=== PATIENT | female | born 1975 | race African-American/Black ===

== ENCOUNTER 2017-09-16 13:58 | Emergency (ER) | payer OTHER ==
[2017-09-16] MEDS ORDERED: ACETAMINOPHEN 325 MG TABLET (FP) PO ONE (14:37)
[2017-09-16 14:38] VITALS: BMI 28.7
--- NOTE | 2017-09-16 14:40 | PDOC ---
Rapid Medical Evaluation Chief Complaint: Cold Symptoms Time Seen by Provider: 09/16/17 14:37 Medical Evaluation: Allergies Allergy/AdvReac Type Severity Reaction Status Date / Time No Known Allergies Allergy Verified 09/16/17 14:35 Vital Signs Temp Pulse Resp BP Pulse Ox 102 F H 124 H 20 118/75 99 09/16/17 14:34 09/16/17 14:34 09/16/17 14:34 09/16/17 14:34 09/16/17 14:34 09/16/17 14:38 I have performed a brief in-person evaluation of this patient. The patient presents with a chief complaint of: Body aches w/ WYNNE, cough, fever and ? sob since yesterday. Tested flu A + at center today but as was tachy to 133 and febrile to 100, was sent to ED as per pt. Was not given meds Pertinent physical exam findings:Febrile and tachy I have ordered the following:tylenol and CXR The patient will proceed to the ED for further evaluation. Discharge Disposition - Referrals Referrals: Tabitha Sterling [Primary Care Provider] - - Patient Instructions - Post Discharge Activity
--- NOTE | 2017-09-16 16:13 | PDOC ---
History of Present Illness - General Chief Complaint: Cold Symptoms Stated Complaint: FLU Symptoms Time Seen by Provider: 09/16/17 14:37 History Source: Patient Exam Limitations: No Limitations - History of Present Illness Initial Comments: 09/16/17 16:10 42-year-old female presents the emergency room complaints of cough, congestion, headache, sore throat earache, and myalgia since yesterday. Patient states went to an urgent care clinic today who tested her for influenza and was positive for flu a since patient was febrile and tachycardic with history of diabetes referred her to the ER for further evaluation of possible pneumonia. Timing/Duration: reports: yesterday Severity: reports: moderate Associated Symptoms: reports: cough, earache, fever/chills, headache, sore throat Past History - Past Medical History Allergies/Adverse Reactions: Allergies Allergy/AdvReac Type Severity Reaction Status Date / Time No Known Allergies Allergy Verified 09/16/17 14:35 Home Medications: Ambulatory Orders Insulin (LOG) Aspart [NovoLOG -] 0 unit SQ DAILY 12/09/15 Cyclobenzaprine HCl [Flexeril -] 10 mg PO TID 09/16/17 Oseltamivir Phosphate [Tamiflu -] 75 mg PO BID #10 capsule 09/16/17 Tramadol HCl [Ultram] 50 mg PO ASDIR 09/16/17 COPD: No Diabetes: Yes HTN: Yes - Suicide/Smoking/Psychosocial Hx Smoking History: Never smoked Hx Alcohol Use: No Drug/Substance Use Hx: No Substance Use Type: None Patient Lives Alone: No Respiratory Specific PMHX - Complaint Specific PMHX Angina: No Bronchitis: No Pneumonia: No Pulmonary Embolus: No TB (Tuberculosis): No Review of Systems - Review of Systems Able to Perform ROS?: Yes Constitutional: Yes: Chills, Fever HEENTM: Yes: Ear Pain, Throat Pain Respiratory: Yes: Cough Cardiac (ROS): No: Symptoms Reported ABD/GI: No: Symptoms Reported Musculoskeletal: No: Symptoms Reported Integumentary: No: Symptoms Reported Neurological: No: Symptoms reported Hematologic/Lymphatic: No: Symptoms Reported *Physical Exam - Vital Signs Last Vital Signs Temp Pulse Resp BP Pulse Ox 102 F H 124 H 20 118/75 99 09/16/17 14:34 09/16/17 14:34 09/16/17 14:34 09/16/17 14:34 09/16/17 14:34 - Physical Exam General Appearance: Yes: Nourished, Appropriately Dressed. No: Apparent Distress HEENT: positive: EOMI, JESSI, TMs Normal, Pharynx Normal. negative: Pale Conjunctivae Neck: negative: Supple Respiratory/Chest: positive: Lungs Clear, Normal Breath Sounds. negative: Respiratory Distress, Accessory Muscle Use Cardiovascular: positive: Regular Rhythm, Tachycardia. negative: Murmur Gastrointestinal/Abdominal: positive: Soft. negative: Tenderness Integumentary: positive: Normal Color, Warm, Moist Neurologic: positive: Motor Strength /5 ED Treatment Course - Medications Given in the ED: ED Medications Discontinued Medications Generic Name Dose Route Start Last Admin Trade Name Freq PRN Reason Stop Dose Admin Acetaminophen 650 mg 09/16/17 14:37 09/16/17 14:47 Tylenol - PO 09/16/17 14:38 650 mg ONCE ONE Administration Medical Decision Making - Medical Decision Making 09/16/17 16:14 Patient for evaluation of pneumonia due to URI symptoms. Patient tested positive for influenza A today at urgent care clinic but was given no medication and sent to the ER to rule out pneumonia. Patient on exam with fever and dry hacking cough. Tylenol and chest x-ray ordered in triage. Awaiting results of x-ray 09/16/17 16:50 Chest x-ray shows no consolidation or pleural effusion. Patient will be discharged home with recommendations to drink plenty of fluids take Tamiflu and check glucose routinely. 09/16/17 18:03 Patient continues to be tachycardic at 124 despite drinking 4 glasses of water. Patient also still complaining of cough and feeling generalized malaise. Patient will transferred to the main ED to further management of care. Case discussed with nurse sales and marketing manager María and will be transported to the main ED *DC/Admit/Observation/Transfer Diagnosis at time of Disposition: Influenza A - Discharge Dispostion Disposition: HOME Condition at time of disposition: Improved - Prescriptions Prescriptions: Oseltamivir Phosphate [Tamiflu -] 75 mg PO BID #10 capsule - Referrals Referrals: Tabitha Sterling [Primary Care Provider] - - Patient Instructions Printed Discharge Instructions: DI for Influenza -- Adult Additional Instructions: Please take Tamiflu as recommended and drink plenty of fluids. Please also check your glucose routinely. - Post Discharge Activity
[2017-09-16] MEDS ORDERED: IBUPROFEN 600 MG TABLET (FP) PO ONE ×2 (17:16→17:19)
[2017-09-16 19:50] VITALS: BP 126/82; PULSE 106; TEMP 98.3
[2017-09-16] MEDS ORDERED: SODIUM CHLORIDE 0.9% 1000 ML INFUS.BAG IV ONE (20:03)
[2017-09-16 20:17] LABS: BASO % 0.3 % (0-2.0); EOS % 0.6 % (0-4.5); HEMATOCRIT 43.6 % (32.4-45.2); HEMOGLOBIN 14.6 GM/dL (10.7-15.3); LYMPH % 25.2 % (8-40); MCH 29.8 pg (25.7-33.7); MCHC 33.4 g/dl (32.0-36.0); MEAN CELL VOLUME 89.3 fl (80-96); MONO % 17.3 % (3.8-10.2); NEUT % 56.6 % (42.8-82.8); PLATELET COUNT 199 K/MM3 (134-434); RBC 4.89 M/mm3 (3.60-5.2); RDW 13.1 % (11.6-15.6); WHITE BLOOD COUNT 4.5 K/mm3 (4.0-10.0)
--- NOTE | 2017-09-16 20:28 | PDOC ---
*Physical Exam - Vital Signs Last Vital Signs Temp Pulse Resp BP Pulse Ox 98.3 F 106 H 16 126/82 99 09/16/17 19:49 09/16/17 19:49 09/16/17 19:49 09/16/17 19:49 09/16/17 14:34 - Physical Exam General Appearance: Yes: Nourished Respiratory/Chest: negative: Crackles, Rales Cardiovascular: positive: Regular Rhythm ED Treatment Course - LABORATORY CBC & Chemistry Diagram: 09/16/17 20:10 09/16/17 20:10 - ADDITIONAL ORDERS Additional order review: 09/16/17 20:10 RBC 4.89 MCV 89.3 MCHC 33.4 RDW 13.1 MPV 9.0 Neutrophils % 56.6 Lymphocytes % 25.2 Monocytes % 17.3 H D Eosinophils % 0.6 D Basophils % 0.3 - Medications Given in the ED: ED Medications Discontinued Medications Generic Name Dose Route Start Last Admin Trade Name Freq PRN Reason Stop Dose Admin Acetaminophen 650 mg 09/16/17 14:37 09/16/17 14:47 Tylenol - PO 09/16/17 14:38 650 mg ONCE ONE Administration Ibuprofen 600 mg 09/16/17 17:16 09/16/17 17:19 Motrin - PO 09/16/17 17:17 600 mg ONCE ONE Administration Sodium Chloride 2,000 ml 09/16/17 20:03 09/16/17 20:11 Normal Saline - IV 09/16/17 20:04 2,000 ml ONCE ONE Administration Medical Decision Making - Medical Decision Making 09/16/17 20:28 Post antipyretics heart rate markedly improved Given history diabetes we'll check acetone CBC chemistry hydrate and reassess history and examination most consistent with flu at this time. 09/16/17 21:56 Patient feels much better heart rate at bedside 99 Patient influenza positive For Tamiflu but given side effect profile decision made not to start Findings, the need for follow-up and strict return instructions discussed with patient. *DC/Admit/Observation/Transfer Diagnosis at time of Disposition: Influenza A - Discharge Dispostion Disposition: HOME Condition at time of disposition: Improved - Prescriptions Prescriptions: Ondansetron [Zofran Odt -] 4 mg SL BID #14 od.tablet Oseltamivir Phosphate [Tamiflu -] 75 mg PO BID #10 capsule - Referrals Referrals: Tabitha Sterling [Primary Care Provider] - - Patient Instructions Printed Discharge Instructions: DI for Influenza -- Adult Additional Instructions: Drink plenty of fluids. Alternate Tylenol and Motrin every 3 hours. Zofran as prescribed as needed for nausea. Return to the ED for any severe worsening symptoms or for any concerns. Please also check your glucose routinely. - Post Discharge Activity
[2017-09-16 21:04] LABS: ANION GAP 5 (8-16); BLOOD UREA NITROGEN 15 mg/dL (7-18); CALCIUM 8.5 mg/dL (8.5-10.1); CHLORIDE 98 mmol/L (98-107); CO2 31 mmol/L (21-32); CREATININE 0.8 mg/dL (0.55-1.02); GLUCOSE,RANDOM 214 mg/dL (74-106); POTASSIUM 3.8 mmol/L (3.5-5.1); SODIUM 134 mmol/L (136-145)
[2017-09-16 22:17] LABS: ACETONE SERUM TRACE (NEGATIVE)
== END 2017-09-16 22:07 | disposition home or self-care (01) ==
LOC: JER 13:58 → JERFT 13:58 → JER 22:07
DX: J09.X2 Influenza due to identified novel influenza A virus with other respiratory manifestations (principal); E11.9 Type 2 diabetes mellitus without complications; Z79.4 Long term (current) use of insulin; I10 Essential (primary) hypertension
CPT/HCPCS: 36415; 71046-TC; 80048; 82009; 85025; 99281-25